=== PATIENT | male | born 1965 | race Two or more races ===

== ENCOUNTER 2024-01-31 13:56 | Emergency (ER) | payer MEDICAID ==
[~2024-01-31] VITALS: Ht 188 cm; Wt 90.3 kg
[2024-01-31 15:11] VITALS: BP 140/90; PULSE 90; RESP 16; TEMP 99; O2SAT 95
[2024-01-31] MEDS ORDERED: OXYM0.0579 (15:18)
== END 2024-01-31 15:14 | disposition home or self-care (01) ==
LOC: ER 14:01
DX: R04.0 Epistaxis (principal)